=== PATIENT | male | born 1930 | race Caucasian/White ===

== ENCOUNTER 2017-03-10 10:20 | Emergency (ER) | payer MEDICARE, BC ==
--- NOTE | ~2017-03-10 | CR63 ---
[facility] A Service of [facility] RADIOLOGY TEXT RESULTS PATIENT: KATE BANGURA LOCATION: SED : [birth year] UNIT #: [id number] AGE: [address]: Thompson Epps MD SEX: M ORDER DR: [id number] [place] [id number] E MR#: [id number] #: [id number] NAME: KATE BANGURA. : 1930 SEX: M STUDY DATE/TIME: 03/10/2017 11:05 UNIT: SED ROOM: STUDY DESCRIPTION: CR Chest 2 View Attending Physician: Thompson Epps M.D. Ordering Physician: Thompson Epps M.D. Primary Care Physician: Juan Horton M.D. MEDICAL IMAGING REPORT This report is preliminary unless electronic signature is present. EXAM Two views of the chest COMPARISON April 16, 2011, April 15, 2011 and September 20, 2010. INDICATION An 86-year-old male with chest pain, cough for 2 weeks. History of non-Hodgkin's lymphoma. FINDINGS There are increased opacities which appear to be localizing to the right middle lobe concerning for pneumonia. There also increased interstitial opacities in the right upper and lower lobes with interstitial appearance. There is stable tortuosity and/or ectasia of the thoracic aorta. Normal heart size. No pneumothorax or pleural effusion. Stable anterior height loss at vertebral body levels of approximately T10-T11 as compared to August 08, 2011, PET CT. There are stable nodular densities in the right pulmonary apex which do not demonstrate significant metabolic activity. This could represent noncalcified granuloma or possibly treated lymphoma. Calcified granuloma also noted in the right upper lobe. IMPRESSION Increased consolidative appearing opacity in the right middle lobe with increased interstitial opacities throughout the right lung. Findings could reflect pneumonia. No significant pleural effusion. Imaging followup to ensure resolution is recommended given history of lymphoma. [facility] A Service of [facility] RADIOLOGY TEXT RESULTS PATIENT: KATE BANGURA LOCATION: SED : [birth year] UNIT #: [id number] AGE: [address]: Thompson Epps MD SEX: M ORDER DR: Dictated by... Ishmael Sargent M.D. THIS IS AN ELECTRONICALLY VERIFIED REPORT Ishmael Sargent M.D. at 03/15/2017 1:36 PM VIVIEN/shanthi TD: 03/10/2017 15:00 JOB #: [id number] MEDICAL IMAGING REPORT Page 1 of 1
[~2017-03-10 10:20] MED LIST: ACETAMINOPHEN PO; ALDACTONE100 MG PO; CIPRO HC OTIC S10 ML OT; COREG6.25 MG PO; CORGARD20 MG PO; DULCOLAX5 MG PO; LASIX PO; LEVAQUIN750 MG PO; NO MEDICATIONS; OMEPRAZOLE40 M1 PO; TYLENOL #3 PO; VALTREX PO; VICODIN 5/1 TAB 5/50 PO; ZOFRAN ODT4 MG SL
== END 2017-03-10 12:51 | disposition home or self-care (01) ==
LOC: SED 10:20
DX: J18.9 Pneumonia, unspecified organism (principal); I10 Essential (primary) hypertension; K74.60 Unspecified cirrhosis of liver; Z87.891 Personal history of nicotine dependence; Z88.0 Allergy status to penicillin
CPT/HCPCS: 71020; 94640; 99283